=== PATIENT | male | born 1960 | race African-American/Black ===

== ENCOUNTER 2018-02-23 14:55 | Emergency (ER) | payer MEDICAID, MEDICARE ==
[~2018-02-23] VITALS: Ht 180.3 cm; Wt 129.3 kg
[2018-02-23] MEDS ORDERED: TETANUS-DIPTH-ACEL PERTUSSIS 0.5ML SYRG IM ONE (17:15)
[2018-02-23 17:30] VITALS: BP 152/78
== END 2018-02-23 17:32 | disposition home or self-care (01) ==
LOC: ER 14:58
DX: S81.812A Laceration without foreign body, left lower leg, initial encounter (principal); W45.8XXA Other foreign body or object entering through skin, initial encounter; Y93.89 Activity, other specified; Y99.8 Other external cause status; Y92.89 Other specified places as the place of occurrence of the external cause
CPT/HCPCS: 12002; 90471; 90715